=== PATIENT | female | born 1955 ===

== ENCOUNTER 2025-02-05 13:08 | Outpatient (AMB) | payer MEDICARE, SELFPAY | END 2025-02-05 13:10 | disposition home or self-care (01) | LOC: HO.HMGAL 13:08 | PROVIDERS: PCP Internal Medicine; Visit Provider Registered Nurse Emergency | DX: J30.89 Other allergic rhinitis (principal) | CPT/HCPCS: 95117; 95165 ==

== ENCOUNTER 2025-03-13 11:13 | Outpatient (AMB) | payer MEDICARE, SELFPAY | END 2025-03-13 11:16 | disposition home or self-care (01) | PROVIDERS: PCP Physician Assistant Medical; Visit Provider Registered Nurse Emergency | DX: J30.89 Other allergic rhinitis (principal) | CPT/HCPCS: 95117; 95165 ==

== ENCOUNTER 2025-04-10 13:43 | Outpatient (AMB) | payer MEDICARE, SELFPAY | END 2025-04-10 13:43 | disposition home or self-care (01) | LOC: HO.HMGAL 13:43 | PROVIDERS: PCP Physician Assistant Medical; Visit Provider Registered Nurse Emergency | DX: J30.89 Other allergic rhinitis (principal) | CPT/HCPCS: 95117; 95165 ==

== ENCOUNTER 2025-05-08 11:38 | Outpatient (AMB) | payer MEDICARE, SELFPAY | END 2025-05-08 11:39 | disposition home or self-care (01) | LOC: HO.HMGAL 11:38 | PROVIDERS: PCP Physician Assistant Medical; Visit Provider Registered Nurse Emergency | DX: J30.89 Other allergic rhinitis (principal) | CPT/HCPCS: 95117; 95165 ==

== ENCOUNTER 2025-06-10 10:57 | Outpatient (AMB) | payer MEDICARE, SELFPAY | END 2025-06-10 10:57 | disposition home or self-care (01) | LOC: HO.HMGAL 10:57 | PROVIDERS: PCP Physician Assistant Medical; Visit Provider Registered Nurse Emergency | DX: J30.89 Other allergic rhinitis (principal) | CPT/HCPCS: 95117; 95165 ==